=== PATIENT | female | born 1960 | race Caucasian/White ===

== ENCOUNTER → 2017-11-10 | Outpatient (CLI) | payer MEDICARE, MEDICAID ==
[~2017-11-10] MED LIST: ACE3T PO; ASCO500T11 PO; ATO40T PO; CALC600T10 OR; DULO20CA PO; HYDR-4683 PO; LEVO100T8 PO; LEVO5TAB2 PO; OMEG1CAP59 PO; PANT1INJ3 PO; PRAV20TA3 PO; TIZA4CAP PO
[2017-11-10 12:22] LABS: Urine Bacteria NONE SEEN /hpf (None Seen); Urine Blood Negative /uL (Negative); Urine Mucus FEW (None Seen); Urine Specific Gravity 1.009 (1.001-1.035); Urine WBC 2 /hpf (0 - 5)
[2017-11-10 12:39] LABS: Albumin 3.9 g/dL (3.4-5.0); Bilirubin, Direct 0.1 mg/dL (0-0.2); Bilirubin, Total 0.6 mg/dL (0.2-1.0); Total Protein 7.8 g/dL (6.4-8.2)
== END | disposition home or self-care (01) ==
LOC: LAB 11:32
PROVIDERS: ATTEND Internal Medicine
DX: Z12.11 Encounter for screening for malignant neoplasm of colon (principal); E03.9 Hypothyroidism, unspecified; E78.5 Hyperlipidemia, unspecified; Z87.891 Personal history of nicotine dependence; Z79.899 Other long term (current) drug therapy
CPT/HCPCS: 36415; 80061; 80076; 81001; 84443

== ENCOUNTER 2018-01-31 07:51 | Day surgery (SDC) | payer MEDICARE, MEDICAID ==
[2018-01-27 09:56] LABS: Basophils # (auto) 0 uL; Eosinophils # (auto) 0.1 uL; Hemoglobin 14.5 g/dL (12.2-16.2); Monocytes # (auto) 0.5 uL; White Blood Cell 6.7 10^3/uL (4.4-10.8)
[2018-01-27 10:00] LABS: Basophils % (auto) 0.4 % (0.0-2.0); Eosinophils % (auto) 1.4 % (0.0-7.0); Hematocrit 42.2 % (36.0-46.0); Lymphocytes # (auto) 1.8 uL; Lymphocytes % (auto) 26.7 % (10.0-50.0); Mean Corpuscular Hemoglobin 34.9 pg (28.0-32.0); Mean Corpuscular Hgb Conc. 34.5 g/dL (32.0-36.0); Mean Corpuscular Volume 101.3 fL (80.0-100.0); Neutrophils # (auto) 4.3 uL; Neutrophils % (auto) 63.5 % (37.0-80.0); Nucleated Red Blood Cells % 0.1 %; Platelet Count (auto) 163 10^3/uL (140-450); Red Blood Cells 4.17 10^6/uL (4.0-5.20); Red Cell Distribution Width 13.5 % (11.8-14.3)
[2018-01-27 10:09] LABS: INR 0.93 (0.9-1.15); Partial Thromboplastin Time 23.4 sec (23.78-33.04)
[2018-01-27 10:13] LABS: Albumin 3.6 g/dL (3.4-5.0); BUN/Creatinine Ratio 14.6; Calcium 8.7 mg/dL (8.5-10.1); Potassium 3.9 mmol/L (3.5-5.1)
[2018-01-27 10:16] LABS: Bilirubin, Total 0.5 mg/dL (0.2-1.0); Total Protein 7.2 g/dL (6.4-8.2)
[2018-01-27 11:12] LABS: Urine Blood 1+ /uL (Negative); Urine Specific Gravity 1.021 (1.001-1.035)
[2018-01-27 11:13] LABS: Urine Amorphous Sediment Few /hpf; Urine WBC 10 /hpf (0 - 5)
[2018-01-27 11:14] LABS: Urine Bacteria MOD /hpf (None Seen)
[~2018-01-31] VITALS: Ht 137.2 cm; Wt 70.3 kg
[~2018-01-31 07:51] MED LIST changes: -ACE3T PO; -ASCO500T11 PO; -DULO20CA PO; -HYDR-4683 PO; -LEVO5TAB2 PO; +LORA-622 PO; +METO25TA62 PO; +PERCOT PO; -PRAV20TA3 PO
[2018-01-31] MEDS ORDERED: MORPHINE SULF INJ 2 MG/ML SYRINGE 1ML IV ONE (08:45)
[2018-01-31] MEDS ORDERED: LIDOCAINE 1% (LOCAL ANESTH.) PF 5ml SDV ONE (10:24)
[2018-01-31] MEDS ORDERED: PROPOFOL 10 MG/ML 20 ML IV ONE (10:24)
[2018-01-31] MEDS ORDERED: MIDAZOLAM HCL 1MG/1ML-2 ML VIAL ONE (10:24)
[2018-01-31] MEDS ORDERED: fentaNYL CITRATE 100 MCG/2 ML VL ONE (11:33)
[2018-01-31] MEDS ORDERED: MORPHINE SULF INJ 2 MG/ML SYRINGE 1ML IV PRN (12:00)
[2018-01-31] MEDS ORDERED: ONDANSETRON HCL 4 MG/2 ML VIAL IV ONE (12:00)
[2018-01-31] MEDS ORDERED: NALOXONE HCL 0.4 MG/ML VIAL IV PRN (12:00)
[2018-01-31 12:21] VITALS: BP 109/72
== END 2018-01-31 12:26 | disposition home or self-care (01) ==
LOC: GI 07:51
PROVIDERS: ATTEND Internal Medicine Gastroenterology
DX: K29.50 Unspecified chronic gastritis without bleeding (principal); K44.9 Diaphragmatic hernia without obstruction or gangrene; K21.0 Gastro-esophageal reflux disease with esophagitis; E66.9 Obesity, unspecified; J40 Bronchitis, not specified as acute or chronic; I10 Essential (primary) hypertension; E07.9 Disorder of thyroid, unspecified; G43.909 Migraine, unspecified, not intractable, without status migrainosus; Z68.37 Body mass index [BMI] 37.0-37.9, adult; Z88.8 Allergy status to other drugs, medicaments and biological substances; Z95.0 Presence of cardiac pacemaker; Z98.51 Tubal ligation status; Z87.891 Personal history of nicotine dependence; Z79.899 Other long term (current) drug therapy
CPT/HCPCS: 36415; 43239; 80053; 81001; 85025; 85610; 85730; 88305; 88342; J2250; J2270; J2704; J3010; J7030; A6257